=== PATIENT | male | born 1985 | race African-American/Black ===

== ENCOUNTER 2022-11-07 08:31 | Outpatient (CLI) | payer MEDICAID, SELFPAY | END 2022-11-07 08:32 | disposition home or self-care (01) | LOC: AMB 11-21 14:49 | PROVIDERS: Visit Provider Emergency Medicine | DX: R63.1 Polydipsia (principal) | CPT/HCPCS: A0998 ==

== ENCOUNTER 2023-05-22 20:43 | Emergency (ER) | payer MEDICAID, SELFPAY ==
[2023-05-22 20:47] VITALS: BP 167/109; PULSE 127; RESP 16; TEMP 36.2; O2SAT 100; BMI 24.4
--- NOTE | 2023-05-22 21:07 | ED.GENADULT ---
HPI - General Adult General Date Seen: 05/22/23 Chief complaint: Dental/Oral/Mouth Injury/Pain Stated complaint: split molar, tooth pain Time Seen by Provider: 05/22/23 20:58 Source: patient, RN notes reviewed and old records reviewed Mode of arrival: ambulatory Limitations: no limitations History of Present Illness HPI narrative: Patient is a 38-year-old male who presents with complaints of pain in the right lower molar. He says he has been having trouble for a couple of weeks, he feels like the tooth his split and 1 piece is loose and moves around. He says he called the dental clinic a couple of days ago and the woman he talked to thought he might have an abscess and recommended that he come in. He presents today for evaluation. He says he has been taking ibuprofen for the pain. He has not specifically had swelling or fevers. Review of his records does show he has a history of opioid abuse disorder, formally maintained on Suboxone although I do not see any prescriptions since November of 2022. He had also has a history of methamphetamine use. Related Data Home Medications Medication Instructions Recorded Confirmed No Known Home Medications 05/22/23 05/22/23 Allergies Allergy/AdvReac Type Severity Reaction Status Date / Time No Known Drug Allergies Allergy Verified 12/30/22 15:33 Exam Narrative: Exam Narrative: Vital signs reviewed. He was hypertensive and tachycardic on arrival. He is cooperative and pleasant. Head normocephalic, atraumatic. Eyes: Sclera clear. ENT: Dentition is intact. The molar in question to my exam is stable, no surrounding abscess palpable. He notes tenderness diffusely along the gumline next to that tooth. Jaw is nontender without swelling. Neck is supple, no adenopathy. Const: Vital Signs, click to edit/add: Vital Signs - 24 hr 05/22/23 20:47 Temperature 97.1 F L Pulse Rate [Left P ulse Oximeter] 127 H Respiratory Rate 16 Blood Pressure [Ri ght Upper Arm] 167/109 H Pulse Oximetry 100 Oxygen Delivery Me thod Room Air Documenting provider has reviewed patient's vital signs: yes Course Course ED Course: Overall, I do not see visible abscess although he certainly could have an abscess at the root of the tooth. Discussed with him that this is a diagnosis that a dentist would need to make, and stressed the importance of dental follow-up. He did inquire about other pain control, I told him that I typically do not provide stronger pain medications for dental pain out of the emergency department, my recommendation would be to add Tylenol and take ibuprofen and Tylenol together 3 times daily. He can use ice. I will start him on amoxicillin and this may be helpful for him as well. He should call tomorrow to arrange dental follow-up. He declined the need for dental resources. Return at any time for facial swelling, fever or other worsening. Vital Signs Vital signs: Initial Vital Signs Temperature 97.1 F L 05/22/23 20:47 Temperature Source Temporal Artery Scan 05/22/23 20:47 Pulse Rate 127 H 05/22/23 20:47 Respiratory Rate 16 05/22/23 20:47 Blood Pressure 167/109 H 05/22/23 20:47 Blood Pressure Mean 128 H 05/22/23 20:47 Blood Pressure Position Sitting 05/22/23 20:47 Pulse Oximetry 100 05/22/23 20:47 Oxygen Delivery Method Room Air 05/22/23 20:47 Vital Signs Temperature 97.1 F L 05/22/23 20:47 Pulse Rate 127 H 05/22/23 20:47 Respiratory Rate 16 05/22/23 20:47 Blood Pressure 167/109 H 05/22/23 20:47 Pulse Oximetry 100 05/22/23 20:47 Oxygen Delivery Method Room Air 05/22/23 20:47 Temperature 97.1 F L 05/22/23 20:47 Pulse Rate 127 H 05/22/23 20:47 Respiratory Rate 16 05/22/23 20:47 Blood Pressure 167/109 H 05/22/23 20:47 Pulse Oximetry 100 05/22/23 20:47 Oxygen Delivery Method Room Air 05/22/23 20:47 Discharge Plan Discharge Clinical Impression: Toothache Patient Disposition: Home, Self-Care Condition: Stable Instructions: Toothache (ED) Additional Instructions: Amoxicillin as prescribed. Ibuprofen 400 mg plus Tylenol 1000 mg 3 times daily with food. Dental follow-up as soon as possible. For facial swelling, fevers, or other worsening return at any time for re-evaluation. Prescriptions: No Action No Known Home Medications Follow Up/Referrals: Provider,Not a Local [Primary Care Provider] - Stand Alone Forms: Clean[employer] Info Instructions
== END 2023-05-22 21:45 | disposition home or self-care (01) ==
LOC: ED 21:35
PROVIDERS: Emergency Provider Emergency Medicine; PCP Family Medicine
DX: K08.89 Other specified disorders of teeth and supporting structures (principal)
CPT/HCPCS: 99283

== ENCOUNTER 2025-04-19 12:42 | Outpatient (CLI) | payer MEDICAID, SELFPAY | END 2025-04-19 12:43 | disposition home or self-care (01) | LOC: AMB 04-21 23:16 | PROVIDERS: PCP Family Medicine; Visit Provider Emergency Medicine Emergency Medical Services | DX: R44.1 Visual hallucinations (principal) | CPT/HCPCS: A0425; A0429 ==

== ENCOUNTER 2025-04-19 13:04 | Emergency (ER) | payer MEDICAID, SELFPAY ==
--- OUTSIDE RECORDS SUMMARY | 2025-04-19 13:08 | XMS_ITS | Clinical Summary ---
Author Organization [facility] Address [address] [place] [address] Care Team Providers Care Branch Rental Manager Name Role Phone Brad Gloria MD Primary Care Provider Allergies Active AllergyReactionsCriticalityNoted DateCommentsBupropionOther - Describe In Comment Field04/12/2017 Erect dysfunction. CitalopramOther - Describe In Comment Field04/12/2017 Not effective for anxiety FluoxetineOther - Describe In Comment Field03/19/2014 Sexual side effects on 20mg. And temper. SertralineOther - Describe In Comment Field08/13/2021 Not effective Medications MedicationSigDispense QuantityRefillsLast FilledStart DateEnd DateStatus amphetamine-dextroamphetamine (AdderalL) 30 mg tablet Indications:Attention deficit hyperactivity disorder (ADHD), unspecified ADHD typeTake 1 Tablet (30 mg) by mouth two times daily. 46 Tablet 5Active Active Problems ProblemNoted DateDiagnosed DateErectile dysfunction of organic bvozts8808/06/2020 Lumbar tmwminibznpfg24/14/2021Anxiety and fhyzgedzjz65/23/2020Hyperlipidemia 05/17/2019Axillary Lhbdqglokvmil86/23/2020Substance abuse, past Suboxone. 05/17/2019Tobacco abuse10/07/2017Attention deficit disorder without mention of cgvndecmzkaoj43/18/2012 Resolved Problems ProblemNoted DateDiagnosed DateResolved DateSuboxone /15/2015 05/17/2019Mood disorder; NOS MDD, Recurrent vs. Bipolar Affective Disorder (2) Panic disorder without qzwsqgcazwp70Issue of repeat prescription for gtxhrbrgzo95 Overview (09/10/2011): for ADD Anxiety lcxnusnp74/15/2013 Encounters DateTypeDepartmentCare JkjfQlzziutoxjs35/17/2025Results Follow-Up [facility] [address] [place] [address] Brad Gloria MD 04/08/2025 3:00 PM CSTOrders Only [facility] [address] [facility] [address] [address] Laboratory, [facility]04/08/2025Refill [facility] [address] [place] [address] Brad Gloria MD Refill Request (amphetamine-dextroamphetamine (AdderalL) 30 mg tablet /) 04/08/20256991Fikqyq66/01/2025Nurse Triage [facility] [address] [place] [address] Brad Gloria MD Medication Vuwomqeukl54/29/2025Refill [facility] [address] [place] [address] Brad Gloria MD Refill Request (amphetamine-dextroamphetamine (AdderalL) 30 mg tablet /)from Last 3 Months Immunizations ImmunizationAdministration DatesNext AczKFD9606/10/1989,01/08/1986,1984, 1984,1984Hepatitis B (Adult)11/16/2007,10/19/2007Hepatitis B (Peds) 09/24/2004,04/09/2004Inflstefani IIV3 (Age 6-35 mos)02/01/2016InflSTEPHANIE koV3 (Age >=3 years)02/02/2013,02/16/2011InflSTEPHANIE koV4005/17/2019,01/19/2017, 04/08/2015,03/19/2014MMR12/07/1996,08/11/1985Oral Polio Bilpshq2811/21/2008, 06/10/1989,01/08/1986,1984,1984Td (Age >=7 Years)12/07/1996Td, Preservative Free (age >= 7 Years)04/12/2014Tdap08/17/2013,10/19/2007 Family History Medical HistoryRelationNameCommentsDiabetesFatherHypertensionFatherHypertension Maternal GrandfatherHeart DiseaseNeg. 1Cancer-colonNeg. 2Cancer-prostateNeg. 3 DiabetesPaternal AuntHypertensionPaternal AuntDiabetesPaternal Grandfather RelationNameStatusCommentsFatherAliveMaternal GrandfatherMotherAliveNeg. 1Neg. 2 Neg. 3Paternal AuntPaternal Grandfather Social History Tobacco UseTypesPacks/DayYears UsedDateSmoking Tobacco: FormerCigarettes0.323.7 05/1999 - 01/22/2024Smokeless Tobacco: Never Tobacco Cessation:Counseling Given: No Comments:1/2 to 3/4 ppd Alcohol UseStandard Drinks/WeekCommentsNot Currently0 (1 standard drink = 0.6 oz pure alcohol)PHQ-2AnswerDate RecordedPHQ-2 TOTAL BWHHB823Social ConnectionsAnswerDate RecordedFrequency of Communication with Friends and Family Financial Resource StrainAnswerDate RecordedDifficulty of Paying Living Afhpvtpl799/21/2022Difficulty of Paying Living ExpensesNot on file 08/13/2021Food InsecurityAnswerDate RecordedWorried About Running Out of Food in the Last Xbtn343Transportation NeedsAnswerDate RecordedLack of Transportation (Medical)Housing StabilityAnswerDate RecordedUnable to Pay for Housing in the Last Itfy248ex and Gender InformationValueDate RecordedSex Assigned at BirthNot on fileLegal ZkzHlwq9605/08/2012 5:24 AM [facility] Gender IdentityNot on fileSexual OrientationNot on fileOccupationIndustryJob Start DateJob End DateUnemployedNot on fileNot on fileNot on file Last Filed Vital Signs Vital SignReadingTime TakenCommentsBlood Vfppuebi129/9008 5:03 PM CDT Mpzut19563/28/2023 3:24 PM PYRPcvmsdyaweu99.7 ??C (98 ??F)05/17/2019 3:46 PM [facility] Respiratory Ytnl854208/05/2016 9:25 PM CDTOxygen Cfypdehoog24%12/20/2022 3:24 PM CDTInhaled Oxygen Concentration--Sfnpad32.6 kg (171 lb)12/20/2022 3:24 PM CDT Ycpqpb520.8 cm (5' 10)12/20/2022 3:24 PM CDTBody Mass Index24.54012/20/2022 3:24 PM CDT Plan of Treatment Health MaintenanceDue DateLast DoneCommentsHepatitis B series for 19+ (3 of 3 - 19+ 3-dose series), 10/19/2007, 09/24/2004, Additional history existsHPV series for age 9-45 (1 - 3-dose SCDM series)03/22/MI (ht and wt on same day) for age 18+, 08/13/2021, 08/06/2020, Additional history existsDepression screening for age 12+, 08/13/2021, 08/08/2020, Additional history existsTetanus wymbutb0204/12/2024 04/12/2014, 08/17/2013, 10/19/2007, Additional history existsLipids for age 35-440, 04/09/2014COVID-19 vaccine series ( - 2024- season)2024Influenza Vaccine (#1), 01/19/2017, 02/01/2016, Additional history existsHIV for age 15-69Kkvzepvcx35/16/2014, 06/15/2010, 02/07/2009Hepatitis C screening for age 18-26Ofxpocqbl73/16/2014, 04/09/2004Pneumococcal series for age 6-49Aged OutNo longer eligible based on patient's age to complete this topic Procedures Procedure NamePriorityDate/TimeAssociated DiagnosisCommentsCOMPLIANCE DRUG HPDJGMYPNolijtz32/15/2025 2:29 PM [facility] Attention deficit hyperactivity disorder (ADHD), unspecified ADHD type LIPID PANEL W REFLEX MEASURED QXIUszrnae41/23/2020 4:28 PM [facility] Hyperlipidemia, unspecified hyperlipidemia type ANTI HIV 1/3Xtpcmsi66/16/2014 5:00 PM [facility] Screen for STD (sexually transmitted disease) ANTI ROZPgbzsiy16/16/2014 5:00 PM [facility] Screen for STD (sexually transmitted disease) from Last 3 Months or Most Recently Relevant to Health Maintenance Results * (ABNORMAL) COMPLIANCE DRUG ANALYSIS (04/08/2025 2:29 PM [facility])ComponentValueRef RangeTest MethodAnalysis TimePerformed AtPathologist Signature6-MONOACETYL MORPHINENegative<10 ng/mL04/10/2025 1:07 PM [facility] AMPHETAMINE URINENegative<500 ng/mL04/10/2025 1:07 PM [facility]ALTHBARBITURATE URINENegative<200 ng/mL04/10/2025 1:07 PM [facility]BENZODIAZEPINE URINENegative<100 ng/mL04/10/2025 1:07 PM [facility]BUPRENORPHRINE URINEPositive(A)<5 ng/mL04/10/2025 1:07 PM [facility]OCA[facility] METAB URINE Negative<300 ng/mL04/10/2025 1:07 PM [facility] ETHYLGLUCURONIDE URINENegative<500 ng/mL04/10/2025 1:07 PM [facility]FENTANYL URINENegative<5 ng/mL04/10/2025 1:07 PM [facility]METHADONE METABOLITE URINENegative<300 ng/mL04/10/2025 1:07 PM [facility]OPIATES URINENegative<300 ng/mL 04/10/2025 1:07 PM [facility]ALTHOXYCODONE URINENegative <100 ng/mL04/10/2025 1:07 PM [facility]PROPOXYPHENE URINENegative<300 ng/mL04/10/2025 1:07 PM [facility]THC 50 URINENegative<50 ng/mL04/10/2025 1:07 PM [facility] TRAMADOLNegative<200 ng/mL04/10/2025 1:07 PM [facility] CREAT UR74.2>=20.0 mg/dL04/10/2025 1:07 PM [facility]PH URINE6.75.0 - 7. 1:07 PM [facility]MASS SPECTROMETRYSee Qafcmqe5004/10/2025 1:07 PM [facility] Specimen (Source)Anatomical Location / LateralityCollection Method / Volume Collection TimeReceived TimeUrineURINE SPECIMEN / UnknownNon-Blood / Unknown 04/08/2025 2:29 PM CST04/08/2025 2:30 PM [facility] Narrative [facility] - 04/10/2025 1:07 PM [facility] Current Outpatient Medications: amphetamine-dextroamphetamine (AdderalL) 30 mg tablet, Take 1 Tablet (30 mg) by mouth two times daily. No current facility-administered medications for this visit. As of 03/20/2025 Release to patient->Immediate Norbuprenorphine present. Authorizing ProviderResult TypeResult StatusRichmei Gloria MDURINEFinal ResultPerforming OrganizationAddressCity/State/ZIP CodePhone Number [facility] [address] [facility] [address] [place] [address], * LIPID PANEL W REFLEX MEASURED LDL (05/17/2019 4:28 PM [facility])ComponentValueRef RangeTest MethodAnalysis TimePerformed AtPathologist Signature CHOLESTEROL,UZHIC758531 - 199 mg/dL05/17/2019 8:09 PM [facility] AHQOJDIHFADWORXFFMHNTOG147<150 mg/dL05/17/2019 8:09 PM CA[facility]-CENTRAL LABORATORYHDL NULCGUYZRIZ68>40 mg/dL 05/17/2019 8:09 PM [facility]CENTRAL LABORATORYNON-HDL QVIYSXAZKIB460<145 mg/dl05/17/2019 8:09 PM [facility] LABORATORYCHOL/HDL RATIO3.29<4.50005/17/2019 8:09 PM [facility] LABORATORYLDL RPLMZODJMGB691<=130 mg/dL05/17/2019 8:09 PM [facility] LABORATORYPROVIDER ORDERED STATUSRANDOM 05/17/2019 8:09 PM [facility] LABORATORYSpecimen (Source)Anatomical Location / LateralityCollection Method / VolumeCollection TimeReceived TimeBloodBLOOD SPECIMEN / UnknownVenipuncture / Lxyegbp0505/17/2019 4:28 PM CST05/17/2019 4:28 PM [facility] Narrative Authorizing ProviderResult TypeResult StatusBrad Gloria MDCHEMISTRY Final ResultPerforming OrganizationAddressCity/State/ZIP CodePhone Number [facility] [address] [place] [address], * ANTI HCV (04/09/2014 5:00 PM [facility])ComponentValueRef RangeTest MethodAnalysis TimePerformed AtPathologist SignatureHEPATITIS C ANTIBODYNon-Reactive Non-Mhsbdqpf74/17/2014 1:31 PM [facility] Specimen (Source)Anatomical Location / LateralityCollection Method / Volume Collection TimeReceived TimeBlood specimen (specimen)BLOOD SPECIMEN / Unknown Venipuncture / Hqnrrnv9004/09/2014 5:00 PM CST04/09/2014 5:00 PM [facility] Narrative [facility] - 04/10/2014 1:31 PM [facility] Antibodies to HCV not detected; does not exclude the possibility of exposure to HCV. Authorizing ProviderResult TypeResult StatusBrad Gloria MDSEND OUTS Final ResultPerforming OrganizationAddressCity/State/ZIP CodePhone Number [facility] [address] [place] [address], * ANTI HIV 1/2 (04/09/2014 5:00 PM [facility])ComponentValueRef RangeTest Method Analysis TimePerformed AtPathologist SignatureHIV-1/HIV-2 ANTIBODYNon-Reactive Non-Auywuqyb73/17/2014 2:04 PM [facility] Specimen (Source)Anatomical Location / LateralityCollection Method / Volume Collection TimeReceived TimeBlood specimen (specimen)BLOOD SPECIMEN / Unknown Venipuncture / Balrrfd4304/09/2014 5:00 PM CST04/09/2014 5:00 PM [facility] Narrative [facility] - 04/10/2014 2:04 PM [facility] HIV-1 p24 and HIV-1/HIV-2 Ab not detected Authorizing ProviderResult TypeResult StatusRichard Yara Gloria MDSEND OUTS Final ResultPerforming OrganizationAddressCity/State/ZIP CodePhone Number [facility] [address] [place] [address], from Last 3 Months or Most Recently Relevant to Health Maintenance Insurance * Guarantor: Mane Medley TypeRelation to PatientDate of BirthPhone Billing AddressPersonal/XoodtlZjqe1985 [address] [place] [address] * Guarantor: Mane Medley TypeRelation to PatientDate of BirthPhone Billing AddressPersonal/CjowojIbjy1985 [address] [place] [address] * Guarantor: MANE MEDLEY TypeRelation to PatientDate of BirthPhone Billing AddressWorkers [facility] [place] [address] * Guarantor: Mane Medley TypeRelation to PatientDate of BirthPhone Billing AddressWorkers XypdHqlc[address] [place] [address] * Guarantor: SERVICE MA[employer] [facility] METROAccount TypeRelation to PatientDate of BirthPhoneBilling AddressOcc Health/[address] [place] [address] * Guarantor: [employer]Account TypeRelation to PatientDate of PhoneBilling AddressOcc Health/Catrina [phone] (Work) [address] [place] [address] * Guarantor: [employer] BAT ONLYAccount TypeRelation to PatientDate of BirthPhoneBilling AddressOcc Health/ThwsZphzxnrc11/01/2001 [facility] [id number] [facility] [place] [address] * Guarantor: [facility] AVONDALEMonogramAccount TypeRelation to PatientDate of BirthPhoneBilling AddressMer[facility]/CorpEmployer [address] [place] [address] Care Teams Team MemberRelationshipSpecialtyStart DateEnd Date Brad Gloria MD [address] [place], [place] [id number] PCP - GeneralFamily Xkdhpyhl91/17/15
[2025-04-19 13:09] VITALS: PULSE 120; RESP 20; TEMP 36.3; O2SAT 97; BMI 27.3
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
== END 2025-04-19 13:51 | disposition home or self-care (01) ==
LOC: ED 13:47
PROVIDERS: Emergency Provider Family Medicine; PCP Family Medicine
DX: R41.82 Altered mental status, unspecified (principal); Z04.89 Encounter for examination and observation for other specified reasons
CPT/HCPCS: 99282; 99283